=== PATIENT | female | born 1990 | race Caucasian/White ===

== ENCOUNTER 2016-09-22 08:22 | Emergency (ER) | payer SELFPAY ==
[~2016-09-22] VITALS: Ht 165.1 cm; Wt 101.8 kg
[2016-09-22 09:51] VITALS: BP 117/87
[2016-09-22 09:51] LABS: BASOPHIL COUNT 0.2 K/uL (0-0.1); EOSINOPHIL (%) 3.6 % (0-5); EOSINOPHIL COUNT 0.2 K/uL (0-0.3); HEMATOCRIT 43.3 % (36.0-46.0); IMMATURE GRANULOCYTE (%) 1.4 % (0.0-0.7); IMMATURE GRANULOCYTE COUNT 0.1 K/uL; INSTRUMENT ABS NEUTROPHIL CT 3.4 K/uL; LYMPHOCYTE COUNT 2.2 K/uL (1.0-2.8); MCH 27.9 PG (29.0-34.0); MCHC 32.3 G/DL (30.0-36.0); MCV 86.4 FL (83-99); MEAN PLAT.VOLUME 10.7 uM^3 (9.5-12.4); MONOCYTE (%) 8.9 % (3-12); MONOCYTE COUNT 0.6 K/uL (0-0.8); NEUTROPHIL (%) 50.8 % (45-76); NEUTROPHIL COUNT 3.4 K/uL (1.8-6.4); PLATELET COUNT 291 K/uL (156-360); RBC DIS.WIDTH-CV 12.8 % (11.8-14.6); RBC DIS.WIDTH-SD 39.9 % (39-53); RED BLOOD COUNT 5.01 M/uL (3.80-5.20); WHITE BLOOD COUNT 6.6 K/uL (4.1-10.2)
[2016-09-22 10:09] LABS: CHLORIDE 108 mEq/L (99-109); POTASSIUM 4.7 mEq/L (3.7-5.4); SODIUM 138 mEq/L (136-147)
[2016-09-22 10:11] LABS: GLUCOSE 86 mg/dL (70-99)
[2016-09-22 10:12] LABS: ANION GAP 7 MEQ/L (2-14)
[2016-09-22 10:14] LABS: GFR ESTIMATE (CALCULATED) > 59 mL/min/
[2016-09-22 10:15] LABS: UREA NITROGEN (BUN) 10 mg/dL (9-23)
[2016-09-22 10:22] LABS: TROP-I INTERPRETATION NEGATIVE; TROPONIN-I < 0.01 ng/mL (0.0-0.30)
== END 2016-09-22 09:53 | disposition left against medical advice (07) ==
LOC: EME 08:22
PROVIDERS: Emergency Medicine
DX: R07.9 Chest pain, unspecified (principal); F17.200 Nicotine dependence, unspecified, uncomplicated
CPT/HCPCS: 71020; 80048; 84484; 85025; 85379; 93005; 99281; 99284

== ENCOUNTER 2016-12-21 11:24 | Emergency (ER) | payer SELFPAY ==
[~2016-12-21] VITALS: Ht 165.1 cm; Wt 104.7 kg
[2016-12-21 14:10] VITALS: BP 113/60
== END 2016-12-21 14:12 | disposition home or self-care (01) ==
LOC: EME 11:24
DX: R51 Headache (principal); F17.200 Nicotine dependence, unspecified, uncomplicated
CPT/HCPCS: 99281; 99285; J1885; J2765; J7030